=== PATIENT | female | born 1945 | race Two or more races ===

== ENCOUNTER 2018-12-12 15:46 | Emergency (ER) | payer MEDICARE, OTHER ==
--- NOTE | 2018-12-12 16:03 | EDM.PDOC ---
ED HPI GENERAL MEDICAL PROBLEM - General Chief Complaint: ENT Problem Stated Complaint: NOSEBLEED Time Seen by Provider: 12/12/18 15:56 Source of Information: Reports: Patient, Family History Limitations: Reports: No Limitations - History of Present Illness INITIAL COMMENTS - FREE TEXT/NARRATIVE: 73 y.o.w.timo came to the ED after she was seen at another ED for nose bleed. No nosebleed started spontaneously. The nose bleed stopped after the right nose was cauterized. Shortly after, the nose bleed started again which brought the pt to our WD. However. The nose bleed subsided GUIDANCE CONSULTANT to our ED. Pt denied HTN, and denies being exposed to dry air No N/V/D no SOB no CP or any other acute med issues. BP 134/76 RR 14 Pulse ox 97% on RA Pulse 84 Onset Date: 12/12/18 Onset Time: 11:00 Duration: Minutes:, Hour(s):, Improving Location: Reports: Face Severity: Mild (no nose bleed GUIDANCE CONSULTANT) Improves with: Reports: Rest Worsens with: Reports: Movement Associated Symptoms: Reports: No Other Symptoms - Related Data Allergies Allergy/AdvReac Type Severity Reaction Status Date / Time No Known Allergies Allergy Verified 12/12/18 16:00 ED ROS ENT - Review of Systems Review Of Systems: See Below Constitutional: Reports: No Symptoms HEENT: Reports: Nosebleed (S/P) Respiratory: Reports: No Symptoms Cardiovascular: Reports: No Symptoms Endocrine: Reports: No Symptoms GI/Abdominal: Reports: No Symptoms : Reports: No Symptoms Musculoskeletal: Reports: No Symptoms Skin: Reports: No Symptoms Neurological: Reports: No Symptoms Psychiatric: Reports: No Symptoms Hematologic/Lymphatic: Reports: No Symptoms Immunologic: Reports: No Symptoms ED EXAM, ENT - Physical Exam Exam: See Below Exam Limited By: No Limitations General Appearance: Alert, WD/WN, Mild Distress Eye Exam: Bilateral Eye: Normal Inspection Ears: Normal External Exam, Normal Canal Nose: Normal Inspection, Normal Mucousa, No Blood, Other (S/O right anterior epistais) Mouth/Throat: Normal Inspection, Normal Gums, Normal Lips Head: Atraumatic, Normocephalic Neck: Normal Inspection, Supple, Non-Tender Respiratory/Chest: No Respiratory Distress, Lungs Clear, Normal Breath Sounds Cardiovascular: Normal Peripheral Pulses, Regular Rate, Rhythm, No Edema, No Gallop, No Murmur, No Rub GI/Abdominal: Normal Bowel Sounds, Soft, Non-Tender, No Organomegaly (Female) Exam: Deferred Rectal (Female) Exam: Deferred Back: Normal Inspection, Full Range of Motion Extremities: Normal Inspection, Normal Range of Motion, Non-Tender, Normal Capillary Refill Neurological: Alert, Oriented, CN II-XII Intact, Normal Cognition, Normal Gait Psychiatric: Normal Affect, Normal Mood Skin: Warm, Dry, Intact, Normal Color Lymphatic: No Adenopathy Course - Vital Signs Text/Narrative:: 73 y.o.w.f came to the ED after she was seen at another ED for nose bleed. No nosebleed started spontaneously. The nose bleed stopped after the right nose was cauterized. Shortly after, the nose bleed started again which brought the pt to our WD. However. The nose bleed subsided GUIDANCE CONSULTANT to our ED. Pt denied HTN, and denies being exposed to dry air No N/V/D no SOB no CP or any other acute med issues. BP 134/76 RR 14 Pulse ox 97% on RA Pulse 84 PE: WNWD W F S/O right ant nose bleed Impression: H/O right ant nose bleed. Tx: None Reexm: Pt was doing fine in the ED Plan: D/C with instruction Last Recorded V/S: Last Vital Signs Temp 36.2 C 12/12/18 15:46 Pulse 74 12/12/18 15:46 Resp 14 12/12/18 15:46 BP 137/94 H 12/12/18 15:46 Pulse Ox 97 12/12/18 15:46 Departure - Departure Time of Disposition: 16:10 Disposition: Home, Self-Care 01 Condition: Good Clinical Impression: Nasal bleeding - Discharge Information Instructions: Oxymetazoline nasal spray, Nosebleed, [id number] Referrals: PCP,Unknown [Primary Care Provider] - Forms: ED Department Discharge Additional Instructions: Please use [facility] as recommended, please f/u with ENT, come back if your symptoms get worse acutely
== END 2018-12-12 16:20 | disposition home or self-care (01) ==
LOC: FB.ED 15:46
DX: R04.0 Epistaxis (principal)
CPT/HCPCS: 99283